=== PATIENT | female | born 1975 | race Two or more races ===

== ENCOUNTER 2020-11-24 15:38 | Outpatient (CLI) | payer OTHER | END 2020-11-24 15:40 | disposition home or self-care (01) | LOC: LAB 15:38 | PROVIDERS: ATTEND Internal Medicine Hematology & Oncology | DX: I10 Essential (primary) hypertension (principal); D50.8 Other iron deficiency anemias; R79.89 Other specified abnormal findings of blood chemistry; R74.02 Elevation of levels of lactic acid dehydrogenase [LDH]; K76.89 Other specified diseases of liver; D51.1 Vitamin B12 deficiency anemia due to selective vitamin B12 malabsorption with proteinuria; E03.8 Other specified hypothyroidism; E06.3 Autoimmune thyroiditis; E21.0 Primary hyperparathyroidism; D63.8 Anemia in other chronic diseases classified elsewhere; D55.0 Anemia due to glucose-6-phosphate dehydrogenase [G6PD] deficiency; D72.828 Other elevated white blood cell count; G47.33 Obstructive sleep apnea (adult) (pediatric); H81.09 Meniere's disease, unspecified ear ==

== ENCOUNTER 2021-04-23 08:40 | Outpatient (CLI) | payer OTHER | END 2021-04-23 08:41 | disposition home or self-care (01) | LOC: LAB 08:40 | PROVIDERS: ATTEND Internal Medicine Hematology & Oncology | DX: D50.8 Other iron deficiency anemias (principal); D51.1 Vitamin B12 deficiency anemia due to selective vitamin B12 malabsorption with proteinuria; I10 Essential (primary) hypertension; N92.0 Excessive and frequent menstruation with regular cycle; D72.828 Other elevated white blood cell count; H81.09 Meniere's disease, unspecified ear; E89.0 Postprocedural hypothyroidism; G47.33 Obstructive sleep apnea (adult) (pediatric); R74.02 Elevation of levels of lactic acid dehydrogenase [LDH]; K76.89 Other specified diseases of liver; D51.8 Other vitamin B12 deficiency anemias ==